=== PATIENT | female | born 1970 | race Caucasian/White ===

== ENCOUNTER 2018-02-18 11:16 | Inpatient (IN) ==
--- NOTE | 2018-02-18 10:03 | Anesthesia Evaluation PreOp ---
Date of Encounter: 02/18/18 Time of Encounter: 12:11 - Past History Planned Operation: Robotic Right Total Hip Arthroplasty Cardiac History: HTN Pulmonary History: Smoker (35 years) SHELVER History: Denies Any Significant HX Other Medical History: GERD, Other (anxiety/depression) Anesthesia History: No Prior Anesthetic Complications, Past Anesthesia Test: Negative (02/16/2018) Alcohol Use: occasionally Drug use: none Medications and Allergies Celecoxib [Celebrex] 200 mg PO BID 02/18/18 [History] Dextroamphetamine/Amphetamine [Adderall 30 mg Tablet] 30 mg PO DAILY 02/18/18 [ History] FLUoxetine HCl [PROzac] 20 mg PO DAILY 02/18/18 [History] Ferrous Sulfate [Iron] 325 mg PO DAILY 02/18/18 [History] HYDROcodone/Acet 7.5/325 mg [[place] 7.5-325 mg] 1 tab PO QID PRN 02/18/18 [ History] Terbinafine HCl [Lamisil] 125 ml TP DAILY 02/18/18 [History] 3 Allergy/AdvReac Type Severity Reaction Status Date / Time acetaminophen [From Percocet] Allergy See Unverified 10/09/15 12:26 Comments Oxycodone [From Percocet] Allergy See Unverified 10/09/15 12:26 Comments Penicillins [PCN] Allergy See Unverified 10/09/15 12:26 Comments - Meds/Allergy Pre-op Review Medications Reviewed: Yes Allergies Reviewed: Yes Beta Blockers on Current Med List: No Anesthesia Results - Labs Laboratory Tests 02/16/18 02/16/18 02/16/18 14:06 14:06 14:06 WBC 7.7 Hgb 15.0 Hct 45.3 H Plt Count 319 PT 11.0 INR 1.0 APTT 30.8 Sodium 133 L Potassium 4.3 BUN 10 Creatinine 0.60 Laboratory Tests 02/16/18 14:06 Beta HCG, Quant 3 Anesthesia Exam O2 Sat Height 1.78 m Height 1.78 m Height 1.78 m Weight 112.945 kg Weight 112.945 kg Weight 112.945 kg O2 Sat by Pulse Oximetry 95 Vital Signs Temp Pulse Resp BP Pulse Ox 98.0 F 89 18 131/85 95 02/18/18 11:38 02/18/18 11:38 02/18/18 11:38 02/18/18 11:38 02/18/18 11:38 Height: 5'10" Weight: 249 lbs NPO (# of Hours): 8 Pain Scale: 0 Pain Scale Used: Numeric (1 - 10) - HEENT Pupil (Motor): EOMI Mallampati: II Teeth: Edentulous Oral Opening: Greater than 3 - SHELVER LOC: Oriented SHELVER Motor: Normal RUE, Normal LUE, Normal RLE, Normal LLE, Normal Face SHELVER Sensory: Normal: RUE, LUE, Face, Deficit: RLE, LLE - Cardiac Rhythm: Regular Murmur: None - Pulmonary Breath Sounds: bilateral Clear Respiratory Effort: Symmetrical Anesthesia Assess/Plan ASA Score: 2 Modified [place] Scale for Level of Consciousness: Cooperative, oriented, and tranquil Anesthetic Plan: General Monitoring Plan: Standard Monitors Recovery Plan: PACU
[2018-02-18] MEDS ORDERED: Albuterol 2.5 MG/3 ML NEBULIZER IH ONE ×2 (11:35→15:38)
[2018-02-18] MEDS ORDERED: CeFAZolin Syr 2,000MG/20 ML 2,000 MG/20 ML SYRINGE IVPB ONE (11:35)
--- NOTE | 2018-02-18 12:07 | History & Physical Report ---
Date of Encounter: 02/18/18 Time of Encounter: 12:07 24 Hour HP Update - Instructions Instructions: If the History and Physical is less than 30 days old and was completed prior to A.M. admission and or procedure and has NOT been updated on calendar day of procedure please complete this update prior to performing procedure. - Update Patient reports changes in Medical Condition: No Changes in examination, assessment, or condition: No Changes in Medication: No Preop tests/diagnostics Reviewed: Yes Surgery Remains Indicated: Yes Consent for Planned Operative Procedure(s) Verified: Yes - Pre-Operative Checklist Preoperative Checklist Indicated: No Prophylactic Antibiotic Ordered: Yes Is VTE Prophylaxis Indicated?: Yes
--- NOTE | 2018-02-18 12:09 | Discharge Summary ---
Orders not resulted at time of discharge: Pending orders 02/18/18 09:30 XR hip complete RT [XR] Routine 02/18/18 09:31 Hemoglobin and Hematocrit [HEME] Routine Date of Encounter: 02/22/18 Time of Encounter: 06:50 - Discharge Diagnosis (1) Arthritis of right hip Priority: Primary Status: Chronic (2) Status post total hip replacement, right Priority: Primary Status: Acute (3) Obesity (BMI 35.0-39.9 without comorbidity) Priority: Secondary Status: Acute - Hospital Course Hospital course: Ms. Posadas is a 47 year old female Status post total hip replacement The patient had an uneventful postoperative course. They received antibiotics and physical therapy and were discharged in stable condition. There will follow -up in the office in 2 weeks. - Time Spent with Patient Total time spent providing and/or coordinating discharge services: - Discharge Medications Home Medications: Aspirin Enteric Coated [Aspirin EC] 325 mg PO BID #20 tablet. 02/18/18 [Rx] Celecoxib [Celebrex] 200 mg PO BID 02/18/18 [History] Dextroamphetamine/Amphetamine [Adderall 30 mg Tablet] 15 mg PO 1400 02/18/18 [ History] Dextroamphetamine/Amphetamine [Adderall 30 mg Tablet] 30 mg PO QAM 02/18/18 [ History] FLUoxetine HCl [Fluoxetine HCl] 10 mg PO QPM 02/18/18 [History] FLUoxetine HCl [PROzac] 20 mg PO DAILY 02/18/18 [History] Ferrous Sulfate [Iron] 325 mg PO DAILY 02/18/18 [History] HYDROcodone/Acet 7.5/325 mg [[place] 7.5-325 mg] 1 tab PO QID PRN 02/18/18 [ History] Terbinafine HCl 250 mg PO DAILY 02/18/18 [History] Allergies/Adverse Reactions: 3 Allergy/AdvReac Type Severity Reaction Status Date / Time Penicillins [PCN] Allergy Diarrhea Verified 02/18/18 18:48 Primary care physician: Bao Cornell MD - Patient Status Disposition: Home Health Service Condition: Good Functional capacity at discharge: uses cane/walker Overall status at discharge: patient is progressing back to baseline (Patient discharged 02/19/18) - Discharge Instructions Follow Up With: Gricelda Alejandro PAC [Physician Multimedia Programmer] - 08/30/18 10:00 am Bao Cornell MD [Primary Care Provider] - Additional Instructions: Discharge Instructions: Total Hip Replacement Please call [facility] ([phone]), your Primary Care Physician, or report to the Emergency Room if you have any of the following symptoms: Nausea, vomiting, fever greater that 101.5, swelling, chest pain, shortness of breath, increased pain/redness/drainage/odor for your incision site, numbness/ tingling, or any other concerning symptoms. ACTIVITY:Weight-bearing as tolerated for 8 weeks with hip dislocation precautions that physical therapy taught you. You may progress as tolerated under the guidance of your physical therapist. You do not need to sleep with a pillow between your legs. You can also seep on the operative side or on your stomach. Incentive Spirometer 10 times an hour. MEDICATIONS: Upon discharge resume your home medications. Take all the medications as prescribed. Take a stool softener if taking narcotic pain medications. Stool softeners are only effective if you drink enough fluids. Drink 6-8 glass of water or fluids a day, unless this is not allowed for another health problem. Despite using stool softeners, if you haven't had a bowel movement in 3 days, please switch to a gentle laxative. Gentle laxatives are sold over the counter. You should have a bowel movement within 24 hours, if not call the office. You will be discharged from the hospital with a prescription for pain medication. You are encouraged to decrease the use of narcotic pain medication as tolerated. Should you require a refill, please call the office. [facility] prescribes narcotic pain medication for only 4-6 weeks after surgery. If you require pain medication beyond this time period, you may be referred to your Primary Care Physician or to the Pain Clinic for further evaluation. Plan ahead for refills on pain medication as many narcotics either need to be picked up at the office or mailed. It is best to call 48-72 hours in advance of needing a prescription refill so you don't run out of medication. To help control the post-operative pain, you may take NSAIDs (Aleve,Advil, Motrin, ibuprofen, naprosyn) or Tylenol as prescribed on the bottle in addition to the pain medication. ANTICOAGULATION (blood thinners): Continue your Aspirin, Lovenox or Coumadin as prescribed to help prevent a blood clot in the leg or in the lungs. As long as your incision remains dry and you tolerate the NSAIDs (Aleve, Advil, Motrin, Ibuprofen, Naprosyn), it is OK to use the NSAIDS while you are taking your anticoagulation medication. Should your incision start to drain, stop the NSAID and contact our office. Common symptoms of blood clot in the legs include: localized pain, swelling, calf tenderness, redness or discoloration of the skin. Blood clot in the lung symptoms include: shortness of breath, rapid pulse, sweating, and chest pain that worsens with deep breathing, coughing up blood, lightheadedness, feelings of anxiety. If you experience any of these symptoms notify your physician immediately, go to the emergency room, or if having trouble breathing, call 911. WOUND CARE: Leave the dressing on for 7 to 10days. You may change the dressing if it is saturated greater than 50%. Do not get the dressing wet at anytime. Wash your hands with antibacterial soap, rinse and dry prior to any wound care. If you have lasha the visiting nurse or rehab facility can remove the stapes 10-14 days after surgery and place steri-strips across the wound. Leave the steri-strips in place until they fall off on their own. You may let water from the shower run on top of the steri-strips. If you do not have a visiting nurse or rehab facility, you will need to return to the office at 10-14 days for the lasha to be removed. If you have itching or redness around the dressing call the office. FOLLOW-UP: Please follow up with your surgeon in the orthopedic clinic in 6 weeks from the day of surgery. If you have lasha that need to be removed, you will need to come back to the office in 10-14 days from the day of surgery.
[2018-02-18] MEDS ORDERED: Acetaminophen IV 1,000 MG/100 ML INFUS..BTL ONE (13:16)
[2018-02-18] MEDS: Ringers Solution, Lactated 1,000 ML IVC SCH ×2 (14:35→15:38)
[2018-02-18] MEDS ORDERED: *HR* Midazolam HCl 2 MG/2 ML VIAL ONE (14:41)
[2018-02-18] MEDS ORDERED: *HR* FentaNYL (PF) 100 MCG/2 ML VIAL ONE (14:41)
[2018-02-18] MEDS ORDERED: Lidocaine -MPF 2% 2 ML VIAL ONE (14:41)
[2018-02-18] MEDS ORDERED: *HR* Propofol 200 MG/20 ML VIAL IVP ONE ×3 (14:41→15:11)
--- NOTE | 2018-02-18 14:41 | Physician Discharge Referral ---
Home Health/Hosp Referral Info Transfer to: Home Health Provider in Charge Post Discharge: PCP - Diagnosis (1) Arthritis of right hip Priority: Primary Status: Chronic (2) Status post total hip replacement, right Priority: Primary Status: Acute (3) Obesity (BMI 35.0-39.9 without comorbidity) Priority: Secondary Status: Acute (4) Chronic pain Priority: Secondary Status: Acute - Respiratory Orders None Smoking Cessation: Smoking cessation has been advised. For more information, call the [place] Tobacco Quit Line at 9-979-NTWX-NOW. - Diet/Nutrition Diet/Nutrition Orders: Regular, Pureed - Activity Activity Orders: Up ad adwoa, Ambulate - Services Needed Following services are medically necessary services: Nursing, Home Health Aide, Physical Therapy, Occupational Therapy Other Treatments: Knee Continuity: Opsite dressing, leave intact until first post-operative visit. If dressing becomes >50% saturated, contact office, remove dressing and place appropriate dressing in its place. Do not allow for dressing to get wet. Zipline/Jerome in place, plan to remove at post-operative day #14-16. Total Joint Precautions x 6 weeks Apply cold therapy wrap 3-6x/day for 20 minutes at a time. Encourage ambulation throughout the day Use Incentive spirometer 10x/hour. Elevate affected extremity above heart as tolerated. Brace: Wear knee immobilizer at night x 2 weeks.~ - Transfer Medications Prescriptions: Aspirin Enteric Coated [Aspirin EC] 325 mg PO BID #20 tablet. Home Medications: Aspirin Enteric Coated [Aspirin EC] 325 mg PO BID #20 tablet. 02/18/18 [Rx] Celecoxib [Celebrex] 200 mg PO BID 02/18/18 [History] Dextroamphetamine/Amphetamine [Adderall 30 mg Tablet] 30 mg PO DAILY 02/18/18 [ History] FLUoxetine HCl [PROzac] 20 mg PO DAILY 02/18/18 [History] Ferrous Sulfate [Iron] 325 mg PO DAILY 02/18/18 [History] HYDROcodone/Acet 7.5/325 mg [[place] 7.5-325 mg] 1 tab PO QID PRN 02/18/18 [ History] Terbinafine HCl [Lamisil] 125 ml TP DAILY 02/18/18 [History] Allergies/Adverse Reactions: 3 Allergy/AdvReac Type Severity Reaction Status Date / Time Penicillins [PCN] Allergy See Unverified 10/09/15 12:26 Comments Certification: Further, I certify that my clinical findings support that this patient is homebound (i.e. absences from home require considerable and taxing effort and are for medical reasons or rastafari services or infrequently or short duration when for other reasons) because: Homebound Reason: Post-surgery restriction and or conditions limit ability to leave home Attestation: My signature below is to certify that this patient is under my care and that I, or nurse practitioner, or a physician's speech and language assistant working with me, has a face-to -face encounter with this patient.
[2018-02-18] MEDS ORDERED: EPHEDrine 50 MG/ML VIAL ONE ×2 (15:03→15:25)
[2018-02-18] MEDS ORDERED: *HR* PHENYLEPHRINE 1,000 MCG/10 ML SYRINGE IVP ONE (15:05)
[2018-02-18] MEDS ORDERED: *HR* Morphine 10 MG/ML VIAL ONE (15:14)
[2018-02-18] MEDS ORDERED: Ondansetron 4 MG/2 ML VIAL ONE (15:24)
[2018-02-18] MEDS ORDERED: Dexamethasone 4 MG/ML VIAL ONE (15:24)
[2018-02-18] MEDS ORDERED: *HR* Morphine 2 MG/ML SYRINGE IVP PRN (15:38)
[2018-02-18] MEDS ORDERED: Ondansetron 4 MG/2 ML VIAL IVP ONE (15:38)
[2018-02-18] MEDS ORDERED: *HR* Labetalol 100 MG/20 ML MDV IVP PRN (15:38)
[2018-02-18] MEDS ORDERED: *HR* Promethazine 25 MG/ML VIAL IVP PRN (15:38)
--- NOTE | 2018-02-18 16:19 | Orthopedic Operative Note ---
Date of procedure: 02/18/18 Pre-op diagnosis: right hip arthritis Post-op diagnosis: same Procedure: Procedure: Right Total Hip Replacment robotic-assisted Estimated blood loss: 300 cc Hardware: Metal and polyethylene replacement. Ed DM Cup: 56 cup Femoral size 8 stem Head: 12 head with Zaria Procedural Notes: Grade 4 arthritic changes femoral head acetabular socket, procedure performed with robotic assistance. 2 mm leg length discrepancy right shorter than left as measured by preoperative CT scan. Operative procedure: The patient was brought to the operating room and placed on the operating room table. After general anesthesia was administered the patient was placed in the lateral decubitus position with the operative leg up. All pressure points were padded appropriately and the head was stabilized in the neutral position. The operative extremity was prepped and draped in the sterile surgical fashion patient received IV antibiotic prior to skin incision. 3 Steinmann pins were placed in the iliac crest 3 cm proximal to the anterior superior iliac spine this was for the robotic-assisted sensor. This was done through a small 2 cm incision. A standard posterior approach is made to the operative hip, the incision was made through the skin and subcutaneous tissue hemostasis was obtained with Bovie cautery. Using careful sharp dissection the fascia was identified and incised exposing the external rotators. The femoral checkpoint was placed leg length was measured at this time utilizing robotic assistance. The external rotators were released off the greater trochanter and tagged with # 2 FiberWire suture. The capsule was T'd open and the hip was brought into internal rotation. Patient noted to have grade 4 arthritic changes femoral head. The femoral neck cut was made at the appropriate level roughly 14 mm proximal to the lesser trochanter aced on preoperative templating. An anterior capsulotomy was performed for the anterior retractor. Soft tissues removed from the acetabulum. Patient noted to have grade 4 arthritic changes acetabulum. The acetabulum checkpoint was placed confirmed. The acetabulum was then mapped with robotic assistance. Based on the preoperative plan the acetabulum was reamed in one step with a 57 reamer. The 58 acetabulum was impacted with robotic assistance and 55 degrees of abduction and 15 degrees of anteversion. The hip was brought back in to internal rotation and prepared with the box truck washer followed by the canal finder followed by the reaming process to a size 7/ 8 broaching process in 20 degrees anteversion. It was broached up to the appropriate size 8. Trial reduction revealed leg lengths close to normal. The femoral implant was impacted in place in 20 degrees of anteversion. Trial reduction found the hip to be stable with 12 head and Zaria. The trials were removed and the real implants were impacted in place. The hip was reduced, patient had robotic confirmed leg length of 0 mm longer than the contralateral side. The hip had excellent stability with forward flexion to 90 degrees adduction of 30 degrees and internal rotation of 60 degrees. The hip had no shuck. The hips after 2 minutes with a antibacterial solution. It was irrigated out with 2 L of pulse irrigation. The checkpoints were removed, Steinmann pins were removed. The hip was closed by the PA. The deep tissue was irrigated and closed deep with #1 PDS suture superficially with 0 PDS suture and skin was closed with skin lasha and zip tie. The patient was placed in a sterile dressing and abduction pillow. The patient was extubated and transferred to the recovery room in stable condition. Anesthesia: KASSANDRA Surgeon: Dmitri Ireland Was there an patient care nursing assistant present: No Estimated blood loss (cc): 300 Condition: stable Disposition: PACU
[2018-02-18] MEDS: *HR* HYDROmorphone (PF) 1 MG/ML SYRINGE IVP PRN ×2 (16:39→17:03)
[2018-02-18 17:18] LABS: Hematocrit 43.7 % (35.3-44.9); Hemoglobin 14.1 g/dL (11.5-15.4)
[2018-02-18] MEDS ORDERED: Ondansetron 4 MG/2 ML VIAL IVP PRN (17:51)
[2018-02-18] MEDS ORDERED: *HR* HYDROcodone/Acet 5/325 mg TABLET PO PRN (17:51)
[2018-02-18] MEDS ORDERED: Sennosides 8.6 MG TABLET PO PRN (17:51)
[2018-02-18] MEDS ORDERED: Naloxone 0.4 MG/ML INJ IVP PRN (17:51)
[2018-02-18] MEDS ORDERED: MOM Conc 10 ML UD.LIQ PO PRN (17:51)
[2018-02-18] MEDS ORDERED: traMADol 50 MG TABLET PO PRN (17:51)
[2018-02-18] MEDS ORDERED: Temazepam 15 MG CAPSULE PO PRN (17:51)
[2018-02-18] MEDS ORDERED: Ringers Solution, Lactated 1,000 ML IVC SCH (17:51)
[2018-02-18] MEDS ORDERED: *HR* Enoxaparin 30 MG/0.3 ML SYRINGE SQ SCH (18:00)
[2018-02-18] MEDS: *HR* Enoxaparin 30 MG/0.3 ML SYRINGE SQ SCH (18:49)
[2018-02-18] MEDS: Clindamycin 900 MG/50 ML 900 MG/50 ML IV.SOLN IVPB SCH (18:49)
[2018-02-18] MEDS: *HR* HYDROcodone/Acet 10/325 mg TABLET PO PRN (18:49)
[2018-02-18] MEDS: Ascorbic Acid 500 MG TABLET PO SCH (18:49)
--- NOTE | 2018-02-18 19:19 | Anesthesia Evaluation Post Op ---
Date of Encounter: 02/18/18 Time of Encounter: 17:27 - Discharge PostOp Status: Transfer Patient to floor (Patient's vital signs have been reviewed. Patient is stable postoperatively and has adequately recovered from anesthesia. Patient is determined to have stable airway patency and respiratory function including respiratory rate and oxygen saturation. Patient has a stable heart rate, blood pressure and adequate hydration. Patients mental status is acceptable. Patients temperature is appropriate. Pain and nausea are adequately controlled.)
[2018-02-19] MEDS: Clindamycin 900 MG/50 ML 900 MG/50 ML IV.SOLN IVPB SCH (00:14)
[2018-02-19] MEDS: *HR* HYDROcodone/Acet 10/325 mg TABLET PO PRN ×2 (00:49→06:46)
[2018-02-19 00:59] LABS: Hematocrit 38.6 % (35.3-44.9); Hemoglobin 12.7 g/dL (11.5-15.4)
[2018-02-19 01:18] LABS: BUN/Creatinine Ratio 16 (6-26); Blood Urea Nitrogen 12 mg/dL (6-20); Calcium 8.6 mg/dL (8.6-10.3); Carbon Dioxide 24 mEq/L (23-29); Chloride 98 mEq/L (98-107); Glucose 153 mg/dL (70-105); Osmolality,Calculated 277 (280-300); Potassium 4.8 mEq/L (3.5-5.1); Sodium 132 mEq/L (136-145); eGFR For Non-African Americans > 60 (> 60)
[2018-02-19] MEDS: *HR* Enoxaparin 30 MG/0.3 ML SYRINGE SQ SCH (04:53)
[2018-02-19] MEDS ORDERED: Ketorolac 30 MG/ML VIAL IVP PRN (05:50)
[2018-02-19] MEDS ORDERED: Acetaminophen IV 1,000 MG/100 ML INFUS..BTL IVPB PRN (05:53)
[2018-02-19] MEDS ORDERED: Multivit/Ca/Min/Fe/FA 1 TAB TABLET PO SCH (09:00)
[2018-02-19] MEDS ORDERED: TERBINAFINE HCL TP SCH (09:00)
[2018-02-19] MEDS ORDERED: FLUoxetine 20 MG CAPSULE PO SCH (09:00)
[2018-02-19] MEDS ORDERED: AMPHETAMINE PO SCH (09:00)
[2018-02-19] MEDS ORDERED: DEXTROAMPHETAMINE PO SCH (09:00)
[2018-02-19] MEDS: Gabapentin 300 MG CAPSULE PO SCH ×2 (10:04→15:25)
[2018-02-19] MEDS: Ascorbic Acid 500 MG TABLET PO SCH (10:04)
[2018-02-19 12:48] VITALS: BP 111/70
== END 2018-02-19 16:40 | disposition home health service (06) | DRG 301 ==
LOC: SAMDAY 11:16 → 3NENU 17:54
PROVIDERS: ADMIT Orthopaedic Surgery; ATTEND Orthopaedic Surgery